=== PATIENT | male | born 1980 | race Two or more races ===

== ENCOUNTER 2019-05-17 06:46 | Emergency (ER) | payer BC ==
[~2019-05-17] VITALS: Ht 177.8 cm; Wt 130.0 kg
[2019-05-17] MEDS ORDERED: NITROGLYCERIN OINT 1GM/INCH UDPKT TD ONE (07:30)
[2019-05-17] MEDS ORDERED: ASPIRIN 325MG EC TABLET PO ONE (07:30)
[2019-05-17 07:56] LABS: EOSINOPHILS % 2.9 % (0.0-5.0); HEMATOCRIT. 48.8 % (42.0-52.0); HEMOGLOBIN. 16.5 g/dL (14.0-18.0); LYMPHOCYTES % 33.2 % (20.0-50.0); MEAN CORPUSCULAR HEMOGLOBIN 31.4 pg (28.0-32.0); MEAN PLATELET VOLUME 8.8 fl (7.4-10.4); MONOCYTES % 7.7 % (2.0-8.0); NEUTROPHILS % 55.2 % (40.0-76.0); PLATELET 120 x1000/uL (130-400); RED BLOOD CELL COUNT 5.25 mill/uL (4.7-6.1); RED CELL DISTRIBUTION WIDTH 13.4 % (11.6-14.6)
[2019-05-17 08:01] LABS: CHLORIDE 111 mEq/L (98-107)
[2019-05-17 08:48] LABS: D-DIMER < 0.19 mg/L FEU (<0.50)
[2019-05-17 08:51] LABS: PROTHROMBIN TIME > 100.0 sec (9.6-11.0)
[2019-05-17 08:52] LABS: INR > 10.0
[2019-05-17 09:25] LABS: PROTHROMBIN TIME 10.2 sec (9.6-11.0)
[2019-05-17 10:25] VITALS: BP 146/97
== END 2019-05-17 10:32 | disposition left against medical advice (07) ==
LOC: ER 06:46 → CANBEDREQ 10:30 → ER 10:32
DX: R06.02 Shortness of breath (principal); I10 Essential (primary) hypertension; R07.89 Other chest pain; F15.10 Other stimulant abuse, uncomplicated; F17.290 Nicotine dependence, other tobacco product, uncomplicated
CPT/HCPCS: 36415; 71045; 80053; 83880; 84484; 85025; 85379; 85610; 93005; 99285; 99406; Z7610